=== PATIENT | female | born 1995 | race Caucasian/White ===

== ENCOUNTER 2020-09-11 20:45 | Inpatient (IN) ==
[2020-09-11 21:50] LABS: ABS Eosinophils 0.1 10^3/ul (0-0.6); ABS Monocytes 0.6 10^3/ul (0-0.8); ABS Neutrophils 4.4 10^3/ul (1.5-7.7); Eosinophil % 0.8 %; Hematocrit 41 % (35-47); Hemoglobin 14.1 g/dL (12.0-16.0); Lymphocyte % 28.2 %; Mean Corpuscular HGB Conc 34 g/dL (31-36); Mean Corpuscular Hemoglobin 31 pg (27-31); Mean Corpuscular Volume 91 fL (80-97); Platelet Count 191 10^3/uL (150-450); Red Blood Count 4.49 10^6 /uL (3.70-4.87); Red Cell Distribution Width 13 % (10-15); White Blood Count 7.1 10^3/uL (3.5-10.8)
[2020-09-11 22:08] LABS: ALT 10 U/L (7-52); AST 15 U/L (13-39); Acetaminophen < 15 mcg/mL; Albumin 4.6 g/dL (3.2-5.2); Albumin/Globulin Ratio 1.7 (1-3); Alcohol, S < 10 mg/dL (<10); Alkaline Phosphatase 45 U/L (34-104); Anion Gap 6 mmol/L (2-11); BUN/Creatinine Ratio 19.5 (8-20); Blood Urea Nitrogen 15 mg/dL (6-24); CO2 Carbon Dioxide 26 mmol/L (22-32); Calcium 9.5 mg/dL (8.6-10.3); Chloride 109 mmol/L (101-111); EGFR African American 112.4 (>60); EGFR Non-African American 92.9 (>60); Globulin 2.7 g/dL (2-4); Glucose 101 mg/dL (70-100); Potassium 3.6 mmol/L (3.5-5.0); Salicylate < 2.50 mg/dL (<30); Sodium 141 mmol/L (135-145); Total Protein 7.3 g/dL (6.4-8.9)
[2020-09-11 22:21] LABS: TSH Ultra Thyroid Stim Horm 1.74 mcIU/mL (0.34-5.60)
[2020-09-11 22:27] LABS: Urine Appearance Cloudy; Urine Bilirubin Negative (Negative); Urine Blood Negative (Negative); Urine Color Yellow; Urine Glucose Negative (Negative); Urine Ketones Negative (Negative); Urine Nitrite Negative (Negative); Urine Protein Negative (Negative); Urine Specific Gravity 1.025 (1.010-1.030); Urine Urobilinogen Negative (Negative)
[2020-09-11 22:32] LABS: Urine Bacteria 1+ (Absent); Urine Red Blood Cell Trace(0-2/hpf) (Absent); Urine Squamous Epithelial Cell Present (Absent); Urine White Blood Cell Trace(0-5/hpf) (Absent)
[2020-09-11 22:37] LABS: Urine Benzodiazepine Screen None Detected (None Detect); Urine Cannabinoids Screen None Detected (None Detect); Urine Opiates Screen None Detected (None Detect)
[2020-09-12] MEDS ORDERED: Al Hydrox/Mg Hydrox/Simet LIQ 30 ML UDC PO PRN (08:32)
[2020-09-12] MEDS: Vitamin THERAPEUTIC TAB PO SCH (10:15)
[2020-09-13] MEDS: Vitamin THERAPEUTIC TAB PO SCH (08:07)
[2020-09-13] MEDS ORDERED: Benzocaine (DENTAL) 10% TOP.GEL TOPICAL PRN (12:10)
[2020-09-14 07:41] LABS: HDL Cholesterol 44.7 mg/dL
[2020-09-14 08:26] VITALS: BP 126/86
[2020-09-14] MEDS: Vitamin THERAPEUTIC TAB PO SCH (09:08)
== END 2020-09-14 12:35 | disposition home or self-care (01) | DRG 753 ==
LOC: ED 20:45 → BSU 09-12 08:21
PROVIDERS: ADMIT Psychiatry & Neurology Psychiatry; ATTEND Psychiatry & Neurology Psychiatry

== ENCOUNTER 2022-01-30 09:23 | Inpatient (IN) ==
[2022-01-30 10:47] LABS: Urine Appearance Cloudy; Urine Bilirubin Negative (Negative); Urine Blood Negative (Negative); Urine Color Straw; Urine Glucose Negative (Negative); Urine Ketones Negative (Negative); Urine Nitrite Negative (Negative); Urine Protein Negative (Negative); Urine Specific Gravity 1.009 (1.002-1.030); Urine Urobilinogen Negative (Negative)
[2022-01-30 10:59] LABS: Urine Benzodiazepine Screen None Detected (None Detect); Urine Cannabinoids Screen None Detected (None Detect); Urine Opiates Screen None Detected (None Detect)
[2022-01-30] MEDS ORDERED: Al Hydrox/Mg Hydrox/Simet LIQ 30 ML UDC PO PRN ×2 (12:54→15:18)
[2022-01-30 13:29] LABS: ABS Basophils 0.1 10^3/ul (0-0.2); ABS Lymphocytes 2.4 10^3/ul (1.0-4.8); ABS Monocytes 0.8 10^3/ul (0-0.8); ABS Neutrophils 8.2 10^3/ul (1.5-7.7); Eosinophil % 0.1 %; Hematocrit 42 % (35-47); Hemoglobin 14.1 g/dL (12.0-16.0); Lymphocyte % 20.6 %; Mean Corpuscular HGB Conc 34 g/dL (31-36); Mean Corpuscular Hemoglobin 31 pg (27-31); Mean Corpuscular Volume 92 fL (80-97); Mean Platelet Volume 9.1 fL (7.4-10.4); Platelet Count 229 10^3/uL (150-450); Red Blood Count 4.52 10^6 /uL (3.70-4.87); Red Cell Distribution Width 13 % (10-15); White Blood Count 11.5 10^3/uL (3.5-10.8)
[2022-01-30 14:15] LABS: ALT 24 U/L (7-52); AST 30 U/L (13-39); Acetaminophen < 15 mcg/mL; Albumin 4.7 g/dL (3.2-5.2); Albumin/Globulin Ratio 1.7 (1-3); Alcohol, S < 13 mg/dL (<13); Alkaline Phosphatase 54 U/L (35-149); Anion Gap 6 mmol/L (2-11); Blood Urea Nitrogen 10 mg/dL (6-24); CO2 Carbon Dioxide 28 mmol/L (22-32); Calcium 9.8 mg/dL (8.6-10.3); Chloride 104 mmol/L (101-111); Globulin 2.8 g/dL (2-4); Glucose 91 mg/dL (70-100); Potassium 3.9 mmol/L (3.5-5.0); Salicylate < 2.50 mg/dL (<30); Sodium 138 mmol/L (135-145); Total Protein 7.5 g/dL (6.4-8.9); eGFR CKD-EPI 119.7 (>60)
[2022-01-30 14:16] LABS: HCG Pregnancy < 0.60 mIU/mL
[2022-01-30 14:25] LABS: TSH Ultra Thyroid Stim Horm 2.36 mcIU/mL (0.34-5.60)
[2022-01-31] MEDS: Vitamin THERAPEUTIC TAB PO SCH (10:09)
[2022-02-01] MEDS: Vitamin THERAPEUTIC TAB PO SCH (09:10)
[2022-02-01] MEDS ORDERED: Miconazole TOPICAL CREAM 2% 30 GM TOPICAL SCH (21:00)
[2022-02-02] MEDS: Miconazole VAGINAL CREAM 2% 45 GM VAGINAL SCH ×3 (05:59→21:58)
[2022-02-02 08:16] LABS: HDL Cholesterol 47.3 mg/dL
[2022-02-02] MEDS: Vitamin THERAPEUTIC TAB PO SCH (08:21)
[2022-02-03] MEDS: Miconazole VAGINAL CREAM 2% 45 GM VAGINAL SCH ×2 (01:15→21:57)
[2022-02-03] MEDS: Vitamin THERAPEUTIC TAB PO SCH (07:23)
[2022-02-04] MEDS: Vitamin THERAPEUTIC TAB PO SCH (07:08)
[2022-02-04 08:57] VITALS: BP 126/73
== END 2022-02-04 12:29 | disposition home or self-care (01) | DRG 753 ==
LOC: ED 09:23 → EDHOLD 12:54 → BSU 15:03
PROVIDERS: ADMIT Psychiatry & Neurology Psychiatry; ATTEND Student in an Organized Health Care Education/Training Program

== ENCOUNTER 2024-06-28 20:00 | Inpatient (IN) ==
[2024-06-28 21:48] LABS: ABS Basophils 0.1 10^3/uL (0.0-0.1); ABS Eosinophils 0.2 10^3/uL (0.0-0.5); ABS Monocytes 0.9 10^3/uL (0.0-0.9); ABS Neutrophils 6.1 10^3/uL (1.5-7.6); Eosinophil % 1.5 %; Hematocrit 39.3 % (35-45); Hemoglobin 13.2 g/dL (11.5-14.3); Lymphocyte % 29.3 %; Mean Corpuscular Hgb Conc 33.7 g/dL (31-36); Mean Platelet Volume 9.1 fL (7.5-11.2); Platelet Count 263 10^3/uL (150-450); Red Blood Count 4.27 10^6/uL (3.63-4.92); Red Cell Distribution Width 12.8 % (12-17); White Blood Count 10.2 10^3/uL (3.8-11.8)
[2024-06-28 21:59] LABS: Urine Appearance Turbid; Urine Bilirubin Negative (Negative); Urine Blood Negative (Negative); Urine Color Light-Yellow; Urine Glucose Negative (Negative); Urine Ketones Negative (Negative); Urine Nitrite Negative (Negative); Urine Protein Negative (Negative); Urine Specific Gravity 1.024 (1.002-1.030); Urine Urobilinogen Negative (Negative); Urine pH 6.5 (5.0-8.0)
[2024-06-28 22:14] LABS: ALT 13 U/L (7-52); AST 15 U/L (13-39); Acetaminophen < 15 mcg/mL; Albumin 4.2 g/dL (3.2-5.2); Albumin/Globulin Ratio 1.7 (1-3); Alcohol, S < 13 mg/dL (<13); Alkaline Phosphatase 50 U/L (35-149); Anion Gap 5 mmol/L (2-16); Blood Urea Nitrogen 17 mg/dL (6-24); CO2 Carbon Dioxide 29 mmol/L (22-32); Calcium 9.8 mg/dL (8.6-10.3); Chloride 102 mmol/L (101-111); Creatinine, Serum 0.74 mg/dL (0.51-0.95); Globulin 2.5 g/dL (2-4); Glucose 94 mg/dL (70-100); Potassium 3.9 mmol/L (3.5-5.0); Salicylate < 2.50 mg/dL (<30); Sodium 136 mmol/L (135-145); Total Bilirubin 0.2 mg/dL (0.2-1.0); Total Protein 6.7 g/dL (6.4-8.9); eGFR CKD-EPI 113.7 (>60)
[2024-06-28 22:19] LABS: HCG Pregnancy < 0.60 mIU/mL
[2024-06-28 22:27] LABS: Urine Benzodiazepine Screen None Detected (None Detect); Urine Cannabinoids Screen None Detected (None Detect); Urine Opiates Screen None Detected (None Detect)
[2024-06-28 22:28] LABS: TSH Ultra Thyroid Stim Horm 3.95 mcIU/mL (0.34-5.60)
[2024-06-28 22:55] LABS: HIV 4th Generation Nonreactive (Nonreactive)
[2024-06-29] MEDS ORDERED: Al Hydrox/Mg Hydrox/Simet LIQ 30 ML UDC PO PRN (03:06)
[2024-06-29] MEDS: Vitamin THERAPEUTIC TAB PO SCH (11:41)
[2024-06-29 13:37] LABS: Chlamydia trachomatis NAA Negative (Negative); Neisseria gonorrhoeae (GC) NAA Negative (Negative)
[2024-06-30 08:56] LABS: HDL Cholesterol 55.6 mg/dL
[2024-07-02 09:32] VITALS: BP 126/87
== END 2024-07-02 11:40 | disposition home or self-care (01) | DRG 753 ==
LOC: ED 20:00 → EDHOLD 06-29 03:06 → BSU 06-29 10:19
PROVIDERS: ADMIT Student in an Organized Health Care Education/Training Program; ATTEND Student in an Organized Health Care Education/Training Program